=== PATIENT | female | born 1985 | race Caucasian/White ===

== ENCOUNTER 2016-08-25 12:48 | Inpatient (IN) | payer OTHER ==
[2016-08-25] MEDS ORDERED: SODIUM CHLORIDE 0.9% 1,000 ML IV STA (13:48)
[2016-08-25] MEDS ORDERED: PIPERACILLIN-TAZOBACTAM 3.375 GM in DEXTROSE/WATER 1 50ML.BAG IVPB STA (13:50)
[2016-08-25] MEDS ORDERED: IV VANCOMYCIN PER PHARMACY 1 EACH MISC MISCELLANE PRN (14:05)
[2016-08-25] MEDS ORDERED: SODIUM CHLORIDE 0.9% 1,000 ML IV SCH (14:15)
[2016-08-25 14:22] LABS: Basophils # (A) 0.1 k/uL (0-0.2); Basophils % (A) 1 %; CH 31.3; CHCM 33.9; Eosinophils # (A) 0.4 k/uL (0-0.7); Eosinophils % (A) 2 %; HCT 40.5 % (34.0-46.0); HDW 2.29; HGB 13.6 gm/dL (11.4-16.0); Luc # (Auto) 0.29; Luc % (Auto) 2; Lymphocytes % (A) 16 %; MCH 31.2 pg (25.0-35.0); MCHC 33.6 g/dL (31.0-37.0); MCV 92.8 fL (80.0-100.0); Mean Platelet Volume 7.9; Monocytes # (A) 0.9 k/uL (0-1.0); Monocytes % (A) 5 %; Neutrophils % (A) 75 %; RBC 4.37 m/uL (3.80-5.40); RDW 13.8 % (11.5-15.5); WBC 18.7 k/uL (3.8-10.6); WBC (Perox) 18.28
[2016-08-25] MEDS ORDERED: KETOROLAC 30 MG/ML 1 ML VIAL IVP PRN (14:22)
[2016-08-25] MEDS ORDERED: HYDROcodone/APAP 5-325MG 1 EACH TAB PO PRN (14:22)
[2016-08-25] MEDS ORDERED: NALOXONE 0.4 MG/ML 1 ML VIAL IV PRN (14:22)
[2016-08-25] MEDS ORDERED: ACETAMINOPHEN TAB 325 MG TAB PO PRN (14:22)
[2016-08-25] MEDS ORDERED: IBUPROFEN 400 MG TAB PO PRN (14:22)
[2016-08-25] MEDS ORDERED: LORazepam 2 MG/ML SYRINGE IV PRN (14:22)
[2016-08-25] MEDS ORDERED: ONDANSETRON 4 MG/2 ML VIAL IVP PRN (14:22)
--- NOTE | 2016-08-25 14:22 | ED ---
Skin/Abscess/FB HPI - General Chief complaint: Skin/Abscess/Foreign Body Stated complaint: Cyst Time Seen by Provider: 08/25/16 13:37 Source: patient, RN notes reviewed, old records reviewed Mode of arrival: ambulatory Limitations: no limitations - History of Present Illness Initial comments: This is a 30-year-old feel presenting to the emergency department with chief complaint of right flank abscess. Patient reports that she saw Dr. José Miguel Angulo in the office and was supposed to be a direct admit. Patient states insurance would not allow her to be direct admit that she now decided to come the emergency department. Patient denies any fever or any other symptoms. She reports that she initially started with a small cyst over the right flank which is now grown into a large abscess. She reports that they were going to do the I &D outpatient in the office however it is to large to do so. Patient was sent with admit orders to be started on antibiotics and she will have the incision and drainage performed later today.Patient denies any recent fever, chills, shortness of breath, chest pain, abdominal pain, nausea vomiting, numbness or tingling, dysuria or hematuria, constipation or diarrhea, headaches or visual changes, or any other current symptoms - Related Data Home Medications Medication Instructions Recorded Confirmed Citalopram Hydrobromide 40 mg PO DAILY 12/01/15 08/25/16 [Citalopram HBr] Sulfamethoxazole/Trimethoprim 1 tab PO BID 08/25/16 08/25/16 [Bactrim DS 800-160 mg] Allergies Allergy/AdvReac Type Severity Reaction Status Date / Time No Known Allergies Allergy Verified 08/25/16 14:13 Review of Systems ROS Statement: Those systems with pertinent positive or pertinent negative responses have been documented in the HPI. ROS Other: All systems not noted in ROS Statement are negative. Past Medical History Past Medical History: No Reported History History of Any Multi-Drug Resistant Organisms: None Reported Past Surgical History: Section Additional Past Surgical History / Comment(s): D&C Past Anesthesia/Blood Transfusion Reactions: Postoperative Nausea & Vomiting ( PONV) Past Psychological History: Depression Smoking Status: Current every day smoker Past Alcohol Use History: Occasional Past Drug Use History: None Reported - Past Family History Mother Family Medical History: No Reported History General Exam Limitations: no limitations General appearance: alert, in no apparent distress Head exam: Present: atraumatic, normocephalic, normal inspection Eye exam: Present: normal appearance, PERRL, EOMI. Absent: scleral icterus, conjunctival injection, periorbital swelling ENT exam: Present: normal exam, mucous membranes moist Neck exam: Present: normal inspection. Absent: tenderness, meningismus, lymphadenopathy Respiratory exam: Present: normal lung sounds bilaterally. Absent: respiratory distress, wheezes, rales, rhonchi, stridor Cardiovascular Exam: Present: regular rate, normal rhythm, normal heart sounds. Absent: systolic murmur, diastolic murmur, rubs, gallop, clicks GI/Abdominal exam: Present: soft, normal bowel sounds. Absent: distended, guarding, rebound, rigid Extremities exam: Present: normal inspection, full ROM, normal capillary refill. Absent: tenderness, pedal edema, joint swelling, calf tenderness Back exam: Present: normal inspection, full ROM, tenderness (Right flank tenderness and abscess appearance. Evidence of scab over abscess) Neurological exam: Present: alert, oriented X3, CN II-XII intact Psychiatric exam: Present: normal affect, normal mood Skin exam: Present: warm, dry, intact, normal color. Absent: rash Course Vital Signs 08/25/16 12:58 Temperature 98.7 F Pulse Rate 86 Respiratory 18 Rate Blood Pressure 112/67 O2 Sat by Pulse 98 Oximetry Medical Decision Making - Medical Decision Making This is a 30-year-old feel presenting to the emergency department with chief complaint of right flank abscess. Patient reports that she saw Dr. José Miguel Angulo in the office and was supposed to be a direct admit. Patient states insurance would not allow her to be direct admit that she now decided to come the emergency department. Patient denies any fever or any other symptoms. She reports that she initially started with a small cyst over the right flank which is now grown into a large abscess. She reports that they were going to do the I &D outpatient in the office however it is to large to do so. Patient does have a significant right flank abscess or phlegmon. Evidence of a scab over the area. And some redness and induration over the site. Patient was evaluated by Dr. Bernabe currently emergency department. Per Dr. Valdez follows orders we' ll start the patient on Zosyn, and Dr. Bernabe wants to also start her on as well on vancomycin. Patient will be admitted for surgical incision and drainage of the right flank abscess. - Lab Data Result diagrams: 08/25/16 14:06 Lab Results 08/25/16 08/25/16 08/25/16 Range/Units 14:06 14:06 14:06 WBC 18.7 H (3.8-10.6) k/uL RBC 4.37 (3.80-5.40) m/uL Hgb 13.6 (11.4-16.0) gm/dL Hct 40.5 (34.0-46.0) % MCV 92.8 (80.0-100.0) fL MCH 31.2 (25.0-35.0) pg MCHC 33.6 (31.0-37.0) g/dL RDW 13.8 (11.5-15.5) % Plt Count 317 (150-450) k/uL Neutrophils % 75 % Lymphocytes % 16 % Monocytes % 5 % Eosinophils % 2 % Basophils % 1 % Neutrophils # 14.0 H (1.3-7.7) k/uL Lymphocytes # 3.0 (1.0-4.8) k/uL Monocytes # 0.9 (0-1.0) k/uL Eosinophils # 0.4 (0-0.7) k/uL Basophils # 0.1 (0-0.2) k/uL Urine Color Yellow Urine Appearance Cloudy H (Clear) Urine pH 6.0 (5.0-8.0) Ur Specific [place] 1.014 (1.001-1.035) Urine Protein Negative (Negative) Urine Glucose (UA) Negative (Negative) Urine Ketones Negative (Negative) Urine Blood Negative (Negative) Urine Nitrite Negative (Negative) Urine Bilirubin Negative (Negative) Urine Urobilinogen <2.0 (<2.0) mg/dL Ur Leukocyte Esterase Negative (Negative) Urine WBC 2 (0-5) /hpf Ur Squamous Epith Cells 4 (0-4) /hpf Urine Mucus Rare H (None) /hpf Urine HCG, Qual Not Detected (Not Detectd) Disposition Clinical Impression: Abscess of back Disposition: ADMITTED IP TO THIS HOSP Condition: Stable Referrals: Addie Arias [facility] [REFERRING] - 1-2 days Time of Disposition: 14:
[2016-08-25 14:25] LABS: Appearance,Urine Cloudy (Clear); Bilirubin,Urine Negative (Negative); Glucose,Urine (UA) Negative (Negative); Ketones,Urine Negative (Negative); Leukocyte Esterase,Urine Negative (Negative); Mucus,Urine Rare /hpf; Nitrite,Urine Negative (Negative); Particle Count 3488; Protein,Urine Negative (Negative); Specific Gravity,Urine 1.014 (1.001-1.035); Squamous Epithelial Cell,Urine 4 /hpf (0-4); UA Billing (MACRO vs. MICRO) MICRO; Urobilinogen,Urine <2.0 mg/dL (<2.0); WBC,Urine 2 /hpf (0-5)
[2016-08-25 14:30] LABS: INR 0.9 (<1.2); Partial Thromboplastin Time 27.3 sec (22.0-30.0); Prothrombin Time 9.7 sec (9.0-12.0)
--- NOTE | 2016-08-25 14:59 | P.GSHP ---
History of Present Illness H&P Date: 08/25/16 Chief Complaint: Right flank abscess 30 years old female presented to [place] surgical office with painful swelling and drainage along with redness in the right lower back. Patient denies any fever, chills or rigors. She denies any nausea or vomiting. No prior skin abscesses. Not known diabetic. She is a chronic active smoker and smokes more than 1 pack per day. - Review of Systems Comment: Constitutional: Denies fever, weight loss or loss of appetite HEENT: No difficulty in vision or hearing. Denies dysphagia. Cardiovascular: Denies chest pain, palpitations, dizziness, shortness of breath. Respiratory: No cough or SOB Gastrointestinal: No recent change in bowel habits, no abdominal pain, no nausea or vomiting. Integumentary: As stated in SALAMATOF Genitourinary: No urinary incontinence, hematuria or dysuria Neurologic: No seizures, denies weakness in upper or lower extremities Musculoskeletal: No knne or joint pain Psychiatry: History of depression, no suicidal ideation Past Medical History Past Medical History: No Reported History History of Any Multi-Drug Resistant Organisms: None Reported Past Surgical History: Section Additional Past Surgical History / Comment(s): D&C Past Anesthesia/Blood Transfusion Reactions: Postoperative Nausea & Vomiting ( PONV) Past Psychological History: Depression Smoking Status: Current every day smoker Past Alcohol Use History: Occasional Past Drug Use History: None Reported - Past Family History Mother Family Medical History: No Reported History Medications and Allergies Home Medications Medication Instructions Recorded Confirmed Type Citalopram Hydrobromide 40 mg PO DAILY 12/01/15 08/25/16 History [Citalopram HBr] Sulfamethoxazole/Trimethoprim 1 tab PO BID 08/25/16 08/25/16 History [Bactrim DS 800-160 mg] Allergies Allergy/AdvReac Type Severity Reaction Status Date / Time No Known Allergies Allergy Verified 08/25/16 14:13 Surgical - Exam Vital Signs Temp Pulse Resp BP Pulse Ox 98.7 F 86 18 112/67 98 08/25/16 12:58 08/25/16 12:58 08/25/16 12:58 08/25/16 12:58 08/25/16 12:58 General: Patient is alert and oriented to time, place and person and cooperative with exam. HEENT: No pallor, no icterus Chest: Bilateral equal breath sounds present. No wheezes, no crackles. Cardiovascular: Regular rate and rhythm. Abdomen: Soft, nontender, nondistended. Integumentary: 2x2 cm [id number] in right lower back with surrounding cellulitis Neurologic: Cranial nerves II-XII intact. Strength upper and lower extremities 5/5. No focal neurologic deficits. Gait is normal. Psychiatric: No anxiety or psychosis. No suicidal thoughts. Results - Labs 08/25/16 14:06 Abnormal Lab Results - Last 24 Hours (Table) 08/25/16 08/25/16 08/25/16 Range/Units 14:06 14:06 14:06 WBC 18.7 H (3.8-10.6) k/uL Neutrophils # 14.0 H (1.3-7.7) k/uL Plasma Lactic Acid Jose Guadalupe 0.6 L (0.7-2.0) mmol/L Urine Appearance Cloudy H (Clear) Urine Mucus Rare H (None) /hpf Assessment and Plan (1) Nicotine dependence Status: Acute (2) Abscess of back Status: Acute (3) Obesity (BMI 30.0-34.9) Status: Acute Plan: 1. Incision and drainage of right back abscess in operating room 2. The risks, benefits and potential complications including bleeding and open surgical wound were discussed. Patient will require local wound care and possible packing with iodoform or Aquacel silver gauze 3. Start IV antibiotics, Zosyn and vancomycin 4. Cultures will be taken in the operating room and antibiotics will be changed as per sensitivity 5. Bilateral SCDs 6. Incentive spirometry
[2016-08-25] MEDS ORDERED: VANCOMYCIN 1,500 MG in SODIUM CHLORIDE 0.9% 250 ML IVPB ONE (15:00)
[2016-08-25 15:32] LABS: Non-African American GFR(MDRD) >60 (>60 ml/min/1.73 sqM)
[2016-08-25 16:02] VITALS: BMI 30.6
[2016-08-25] MEDS ORDERED: MIDAZOLAM 2 MG/2 ML VIAL IVP ONE (19:19)
[2016-08-25] MEDS ORDERED: IV FLUID CONTINUATION 1,000 ML IV ONE (20:17)
[2016-08-25] MEDS ORDERED: fentaNYL (PF) 50 MCG/ML 2 ML AMP ONE (20:18)
[2016-08-25] MEDS ORDERED: MIDAZOLAM 2 MG/2 ML VIAL ONE (20:18)
[2016-08-25] MEDS ORDERED: VANCOMYCIN 1,000 MG VIAL ONE (20:18)
[2016-08-25] MEDS ORDERED: PROPOFOL 10 MG/ML 20 ML VIAL IV ONE (20:18)
[2016-08-25] MEDS ORDERED: KETAMINE 10 MG/ML 20 ML VIAL ONE (20:18)
--- NOTE | 2016-08-25 20:22 | P.OP ---
Date of Procedure: 08/25/16 Preoperative Diagnosis: Right lower back abscess Postoperative Diagnosis: Same Procedure(s) Performed: Incision and drainage of right lower back abscess Implants: NA Anesthesia: MAC, local Surgeon: Harmony Bernabe Pathology: other Condition: stable Disposition: PACU Indications for Procedure: 30 years old female presents with right flank swelling, redness and drainage. Informed consent obtained and she elected to undergo I&D of right flank abscess. Operative Findings: Description of Procedure: The patient was brought to the operating room and placed in lateral decubitus position. IV sedation was given as per anesthesia team. A timeout was performed to verify correct patient and correct procedure. Patient was confirmed to receive perioperative IV antibiotics. Betadine was used to prep the skin followed by application of sterile drapes. A 2.5 x 1 cm elliptical incision was made and 5 mL of purulent pus was evacuated. Aerobic and anaerobic cultures sent. The wound was irrigated with half-strength hydrogen peroxide. The wound was packed with Aquacel silver rope. Clean dressings applied. Patient tolerated the procedure well and was taken to post anesthesia care unit in stable condition. The sponge, instrument and needle count were correct 2
[2016-08-25 21:09] VITALS: RESP 16
[2016-08-25 22:23] VITALS: BP 124/76; PULSE 88; TEMP 97.1
[2016-08-26] MEDS ORDERED: PIPERACILLIN-TAZOBACTAM 3.375 GM in DEXTROSE/WATER 1 50ML.BAG IVPB SCH
[2016-08-26] MEDS ORDERED: VANCOMYCIN 1,250 MG in SODIUM CHLORIDE 0.9% 250 ML IVPB SCH (04:00)
[2016-08-26] MEDS ORDERED: ESOMEPRAZOLE 20 MG in SODIUM CHLORIDE 0.9% 50 ML IVPB SCH (09:00)
[2016-08-26] MEDS ORDERED: CITALOPRAM HYDROBROMIDE 20 MG TAB PO SCH (09:00)
--- NOTE | 2016-08-29 21:57 | P.DS ---
Providers Date of admission: 08/25/16 14:26 Expected date of discharge: 08/25/16 Attending physician: Harmony Bernabe Primary care physician: Clemente Morales - Discharge Diagnosis(es) (1) Nicotine dependence Status: Acute (2) Abscess of back Status: Acute (3) Obesity (BMI 30.0-34.9) Status: Acute Hospital Course: S/P Incision and drainage of right back abscess. Did well postoperatively Patient Condition at Discharge: Stable Plan - Discharge Summary New Discharge Prescriptions: New Hydrocodone/Acetaminophen [[place] 5-325] 1 each PO Q6HR PRN #10 tab PRN Reason: Pain No Action Citalopram Hydrobromide [Citalopram HBr] 40 mg PO DAILY Sulfamethoxazole/Trimethoprim [Bactrim DS 800-160 mg] 1 tab PO BID Discharge Medication List Citalopram Hydrobromide [Citalopram HBr] 40 mg PO DAILY 12/01/15 [History] Hydrocodone/Acetaminophen [[place] 5-325] 1 each PO Q6HR PRN #10 tab 08/25/16 [Rx] Sulfamethoxazole/Trimethoprim [Bactrim DS 800-160 mg] 1 tab PO BID 08/25/16 [ History] Follow up Appointment(s)/Referral(s): Addie Arias [facility] [REFERRING] - 1-2 days Harmony Bernabe MD [STAFF PHYSICIAN] - 09/05/16 Patient Instructions/Handouts: *Surgery [facility] - (Anesthesia) Discharge Instructions Outpatient Surgery, Pneumonitis (GEN), Incision and Drainage (DC) Activity/Diet/Wound Care/Special Instructions: OK to shower tomorrow . No soaking bath. May use ice packs for local pain relief Take Motrin 600 mg po TID after meals if pain is not controlled Bactrim double strength 1 tab by mouth twice a day for 10 days( Patient has a Rx filled)) Pack the incision with Aquacel silver rope. Change dressing every 48 hours. Reapply clean dressing on top Discharge Disposition: HOME SELF-CARE
== END 2016-08-25 23:14 | disposition home or self-care (01) | DRG 603 ==
LOC: EC 12:48 → 6PED 14:26
PROVIDERS: ADMIT Surgery; ATTEND Surgery
PROC: 0H96XZZ Drainage of Back Skin, External Approach (ICD-10-PCS; principal; 2016-08-25 10:00)
DX: L02.212 Cutaneous abscess of back [any part, except buttock and flank] (principal); F32.9 Major depressive disorder, single episode, unspecified; E66.9 Obesity, unspecified; F17.200 Nicotine dependence, unspecified, uncomplicated; Z68.30 Body mass index [BMI] 30.0-30.9, adult; Z79.899 Other long term (current) drug therapy
CPT/HCPCS: 36415; 81001; 81025; 82565; 83605; 85025; 85610; 85730; 87040; 87070; 87075; 87077; 87186; 87205; 99285

== ENCOUNTER → 2019-01-16 | Outpatient (CLI) | payer OTHER ==
--- NOTE | 2019-01-16 12:42 | US ---
EXAMINATION TYPE: US pelvis complete transvag DATE OF EXAM: 01/16/2019 COMPARISON: NONE CLINICAL HISTORY: R10.2 pelvic pain, N19.2 amenorrhea. Intermittent pelvic pain x 1 month, 2, para 2, history of D&C. TECHNIQUE: . Transabdominal sonographic images of the pelvis were acquired. Transvaginal sonographi c images were medically necessary to better assess the following anatomy: ovaries and endometrium Date of LMP: 3 months ago EXAM MEASUREMENTS: Uterus: 8.1 x 3.7 x 4.0 cm Endometrial Stripe: 0.6 cm Right Ovary: 3.5 x 2.4 x 2.9 cm Left Ovary: 3.0 x 1.4 x 1.5 cm 1. Uterus: anteverted 2. Endometrium: appears wnl 3. Right Ovary: 1.9 x 2.2 x 2.0cm cystic area 4. Left Ovary: wnl 5. Bilateral Adnexa: wnl 6. Posterior cul-de-sac: small amount of free fluid IMPRESSION: 1. Probable functional right ovarian cyst which can be confirmed in 6 weeks. Trace free fluid within the cul-de-sac.
== END | disposition home or self-care (01) ==
LOC: RADUSWWP 11:46
PROVIDERS: ATTEND Obstetrics & Gynecology
DX: N91.2 Amenorrhea, unspecified (principal)
CPT/HCPCS: 76830; 76856

== ENCOUNTER → 2021-07-26 | Outpatient (CLI) | payer OTHER ==
--- NOTE | 2021-07-26 15:39 | US ---
EXAMINATION TYPE: US transvaginal DATE OF EXAM: 07/26/2021 COMPARISON: NONE CLINICAL HISTORY: N94.6 DYSMENORRHEA,N92.0 MENOREHAGIA. pre surgical testing, patient pending tubal l igation August 09 TECHNIQUE: TV Transvaginal sonographic images Date of LMP: 07/26/2021 EXAM MEASUREMENTS: Uterus: 8.1 x 5.1 x 4.0 cm Endometrial Stripe: 0.4 cm Right Ovary: 2.7 x 2.4 x 2.2 cm Left Ovary: 2.5 x 1.9 x 1.8 cm 1. Uterus: Anteverted wnl 2. Endometrium: wnl 3. Right Ovary: wnl 4. Left Ovary: wnl 5. Bilateral Adnexa: wnl 6. Posterior cul-de-sac: wnl IMPRESSION: No acute process.
== END | disposition home or self-care (01) ==
LOC: RADUSWWP 13:41
PROVIDERS: ATTEND Obstetrics & Gynecology
DX: N94.6 Dysmenorrhea, unspecified (principal); N92.0 Excessive and frequent menstruation with regular cycle
CPT/HCPCS: 76830

== ENCOUNTER 2021-08-11 06:14 | Day surgery (SDC) | payer OTHER ==
[2021-08-04 14:46] VITALS: BMI 31.0
--- NOTE | 2021-08-10 21:04 | P.HPOB ---
History of Present Illness H&P Date: 08/10/21 Chief Complaint: Family planning, dysmenorrhea This is a 35 y.o. female, 2, para 2, who presents for DaVinci Robotic assisted laparoscopic bilateral tubal ligation with possible lysis of adhesions for family planning and dysmenorrhea. She has a history of 2 previous sections. She had a recent pelvic ultrasound that showed uterus measuring 8.1 x 5.1 x 4 cm with an endometrial thickness of 4 mm. Both ovaries appeared normal. Her menses are occurring monthly, lasting 6 days with the first couple days heavy. OB History: . 2 deliveries. Center Mgr Hx: No history of STDs. Social Hx: . Works at a daycare. Review of Systems Constitutional: Denies chills, Denies fever Eyes: denies blurred vision, denies pain Ears, nose, mouth and throat: Denies headache, Denies sore throat Breasts: right: nipple discharge (yellow) Cardiovascular: Denies chest pain, Denies shortness of breath Genitourinary: Reports dysmenorrhea, Reports menorrhagia, Denies dysuria, Denies hematuria Musculoskeletal: Reports low back pain (during menses), Denies myalgias Integumentary: Denies pruritus, Denies rash Neurological: Denies numbness, Denies weakness Psychiatric: Reports anxiety, Denies depression Past Medical History Past Medical History: No Reported History History of Any Multi-Drug Resistant Organisms: MRSA Date of last positivie culture/infection: 08/25/16 MDRO Source:: BACK Past Surgical History: Section (x2) Additional Past Surgical History / Comment(s): D&C. CYST REMOVED FROM BACK Past Anesthesia/Blood Transfusion Reactions: Postoperative Nausea & Vomiting (PONV) Past Psychological History: Anxiety Smoking Status: Current every day smoker Past Alcohol Use History: Occasional Past Drug Use History: None Reported - Past Family History Mother Family Medical History: Hypertension Father Family Medical History: Diabetes Mellitus Medications and Allergies Home Medications Medication Instructions Recorded Confirmed Type Phentermine HCl [Adipex-P] 37.5 mg PO DAILY 08/04/21 08/11/21 History Allergies Allergy/AdvReac Type Severity Reaction Status Date / Time No Known Allergies Allergy Verified 08/11/21 06:31 Exam Osteopathic Statement: *. No significant issues noted on an osteopathic structural exam other than those noted in the History and Physical/Consult. HEENT: within normal limits Heart: regular rate and rhythm Lungs: clear to auscultation bilaterally Abdomen: soft, non-tender Pelvic: uterus anteverted, non-tender, with no adnexal masses palpated. Extremities: neg. Annalisa's Assessment and Plan (1) Family planning Current Visit: No Status: Acute Code(s): Z30.09 - ENCOUNTER FOR OT GENERAL CNSL AND ADVICE ON CONTRACEPTION SNOMED Code(s): 873778852 (2) Dysmenorrhea Current Visit: No Status: Acute Code(s): N94.6 - DYSMENORRHEA, UNSPECIFIED SNOMED Code(s): 313298503 Plan: Proceed with DaVinci Robotic assisted laparoscopic bilateral tubal ligation via fulgaration, possible lysis of adhesions. I have discussed the risks, benefits, and alternative therapies for the above- mentioned procedure and for both sedation/anesthesia as well as necessary blood products administration, if indicated, as they pertain to this patient. The patient has indicated her understanding and acceptance of the risks and procedures discussed.
[~2021-08-11 06:14] MED LIST: DEXAMETHASONE SOD PHOSPHATE 4 MG/ML 1 ML VIAL IV ONE; HYDROmorphone 0.5 MG/0.5 ML SYRINGE IVP PRN; LACTATED RINGERS 1,000 ML IV SCH; ONDANSETRON 4 MG/2 ML VIAL IVP ONE; Pre Op ABX Message 1 EACH MISC MISCELLANE ONE
[2021-08-11] MEDS ORDERED: MIDAZOLAM 2 MG/2 ML VIAL IV ONE (06:55)
[2021-08-11] MEDS ORDERED: HYDROmorphone (PF) 1 MG/ML ONE (07:22)
[2021-08-11] MEDS ORDERED: MIDAZOLAM 2 MG/2 ML VIAL ONE (07:22)
[2021-08-11] MEDS ORDERED: SUCCINYLCHOLINE CHLORIDE 100 MG/5 ML SYR IV ONE (07:22)
[2021-08-11] MEDS ORDERED: NEOSTIGMINE 1 MG/ML 10 ML VIAL ONE (07:22)
[2021-08-11] MEDS ORDERED: GLYCOPYRROLATE 0.2 MG/ML 2 ML VIAL ONE (07:22)
[2021-08-11] MEDS ORDERED: fentaNYL (PF) 50 MCG/ML 2 ML AMP ONE (07:22)
[2021-08-11] MEDS ORDERED: LIDOCAINE 2% INJ 20 MG/ML (2 ML VIAL) ONE (07:22)
[2021-08-11] MEDS ORDERED: PROPOFOL 10 MG/ML 20 ML VIAL IV ONE (07:22)
[2021-08-11] MEDS ORDERED: ROCURONIUM 10 MG/ML (5 ML VIAL) IV ONE (07:22)
[2021-08-11] MEDS ORDERED: BUPIVACAINE (PF) 0.25% 30 ML VIAL SQ ONE ×2 (08:04→08:22)
[2021-08-11] MEDS ORDERED: LACTATED RINGERS 1,000 ML IV ONE (08:33)
--- NOTE | 2021-08-11 08:37 | P.OP ---
Date of Procedure: 08/11/21 Preoperative Diagnosis: Family planning Dysmenorrhea Postoperative Diagnosis: Same Procedure(s) Performed: Robotic-assisted laparoscopic bilateral tubal ligation via fulguration with da Gayle Anesthesia: AISSATOU Surgeon: Heena Pascual (Dr. Feliciano as Fernandez) Estimated Blood Loss (ml): 10 Pathology: none sent Condition: stable Disposition: same day Indications for Procedure: This is a 35 y.o. female, 2, para 2, who presents for DaVinci Robotic assisted laparoscopic bilateral tubal ligation with possible lysis of adhesions for family planning and dysmenorrhea. She has a history of 2 previous sections. She had a recent pelvic ultrasound that showed uterus measuring 8.1 x 5.1 x 4 cm with an endometrial thickness of 4 mm. Both ovaries appeared normal. Her menses are occurring monthly, lasting 6 days with the first couple days heavy. Operative Findings: Uterus is small, sounded to 8 and half centimeters, anteverted. Normal uterus tubes and ovaries are noted. Her is minimal adhesions anteriorly over the lower uterine segment due to her previous sections. No abdominal adhesions are noted. Description of Procedure: The patient is taken to the operating room and placed in a dorsal lithotomy position after general anesthesia is given. Her arms are tucked and she is placed in the [facility] for robotic positioning. She is prepped and draped in the normal sterile fashion. Bladder is drained with a catheter and then it is removed. Examination is performed under anesthesia. Uterus is found to be in the anteverted position with no adnexal masses palpated. A weighted speculum was placed in the patient's vagina and a right angle retractor is used to visualize the cervix. An Allis clamp was placed on the anterior lip of the cervix. Cervix is gently dilated with Ball dilators until a sound could be passed. Uterus is sounded to 8.5 cm. The kroner uterine manipulator was then inserted and the balloon is inflated. The Allis clamp was removed and the weighted speculum was removed. Gloves are changed and attention is turned to the abdomen. The uterus is anteverted and the marked where the fundus is noted. A small cut is placed just above the umbilicus and a 5 mm disposable bladeless trochar is inserted under direct visualization into the peritoneal cavity. Once inside, pneumoperitoneum was achieved. Insert was removed and the camera was replaced. Next a small incision is made and the da Gayle 8 mm Trocar is placed in the left side of the abdomen approximately 8 cm from the umbilicus under direct visualization. The same procedure is carried out on the right side of the abdomen. Next the camera is placed in the right trocar port and the 5 mm trocar is removed from above the umbilicus and replaced with a da Gayle 8 mm trocar under direct visualization. The da Gayle robot is docked to the patient. The trochars are attached and the camera is inserted in the upper trocar. A fenestrated bipolar instrument was placed in the left trocar and a Cadiere gras per was placed in the right trocar. Next I broke scrub and went to the da Gayle console. The left fallopian tube is grasped and brought away from other structures. The midportion of the tube is grasped with the fenestrated bipolar and bipolar cautery is applied. This is carried out on approximately 2-3 cm segment of the tube. Same procedure is carried out on the right fallopian tube. Pictures are taken. There is noted to be a small amount of tissue from the bladder to the lower uterine segment consistent with her previous section. Next the instruments are removed and the robot is undocked. Trochars are removed and incisions are sutured with 4-0 undyed Vicryl suture in a similar fashion. Steri-Strips strips are placed. The incision sites are then injected with quarter percent lidocaine. Approximately 10 mL are used. The kroner uterine manipulator is deflated and removed. All counts are correct. Patient is taken to recovery room in stable
[2021-08-11 08:44] VITALS: TEMP 96.9
[2021-08-11 09:45] VITALS: BP 150/100; PULSE 79; RESP 15
== END 2021-08-11 10:10 | disposition home or self-care (01) ==
LOC: OR 06:14
PROVIDERS: ATTEND Obstetrics & Gynecology
DX: Z30.2 Encounter for sterilization (principal); N94.6 Dysmenorrhea, unspecified; R93.89 Abnormal findings on diagnostic imaging of other specified body structures; F41.9 Anxiety disorder, unspecified; F17.200 Nicotine dependence, unspecified, uncomplicated; Z82.49 Family history of ischemic heart disease and other diseases of the circulatory system; Z83.3 Family history of diabetes mellitus; Z79.899 Other long term (current) drug therapy
CPT/HCPCS: 81025; 58670; J2250; J1100; J2710; J2405; J3010; J1170; J0330; J2704; J2001